=== PATIENT | female | born 1965 | race Asian ===

== ENCOUNTER 2021-01-27 12:20 | Emergency (ER) | payer BC ==
[~2021-01-27] VITALS: Ht 160 cm; Wt 59.0 kg
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
--- NOTE | 2021-01-27 12:24 | NUR ---
DR GILL AT BEDSIDE
[2021-01-27] MEDS ORDERED: KETOROLAC TROMETHAMINE INJ 60 MG/2 ML VIAL IM ONE (12:30)
[2021-01-27] MEDS ORDERED: KETOROLAC TROMETHAMINE INJ 30 MG/ML VIAL ONE (12:31)
[2021-01-27] MEDS ORDERED: AMLODIPINE BESYLATE 5 MG TABLET PO ONE (13:00)
[2021-01-27] MEDS ORDERED: AMLODIPINE BESYLATE 5 MG TABLET ONE (13:05)
--- NOTE | 2021-01-27 13:44 | NUR ---
Patient discharged to home in stable condition. Written and verbal after care instructions given. Patient verbalizes understanding of instruction.
[2021-01-27 13:51] VITALS: BP 187/109
== END 2021-01-27 13:52 | disposition home or self-care (01) ==
LOC: ER 12:24
DX: S39.012A Strain of muscle, fascia and tendon of lower back, initial encounter (principal); I10 Essential (primary) hypertension; E11.9 Type 2 diabetes mellitus without complications; V49.59XA Passenger injured in collision with other motor vehicles in traffic accident, initial encounter; Y93.89 Activity, other specified; Y92.488 Other paved roadways as the place of occurrence of the external cause; Y99.8 Other external cause status
CPT/HCPCS: 72100; 99283; J1885

== ENCOUNTER 2023-06-18 19:58 | Emergency (ER) | payer BC, OTHER ==
[~2023-06-18] VITALS: Ht 160 cm; Wt 59.0 kg
[2023-06-18 20:05] VITALS: TEMP 98
[2023-06-18 20:43] LABS: BASOPHILS % (AUTO) 0.3 % (0.0-2.0); EOSINOPHILS % (AUTO) 0.1 % (0.0-6.0); HEMATOCRIT 42 % (33-45); HEMOGLOBIN 13.6 g/dL (11.5-14.8); LYMPHOCYTES # (AUTO) 1.2 K/uL (0.8-4.8); LYMPHOCYTES % (AUTO) 9.1 % (20.0-44.0); MEAN CORPUSCULAR HEMOGLOBIN 28 PG (26.0-33.0); MEAN CORPUSCULAR HGB CONC 33 g/dl (31.0-36.0); MEAN CORPUSCULAR VOLUME 85 fL (82-100); MONOCYTES # (AUTO) 1.3 K/uL (0.1-1.30); MONOCYTES % (AUTO) 9.5 % (2.0-12.0); PLATELET COUNT (AUTO) 229 K/uL (150-450); RED CELL DISTRIBUTION WIDTH 13.4 % (11.5-15.0); WHITE BLOOD COUNT (AUTO) 13.6 K/uL (4.3-11.0)
[2023-06-18 21:12] LABS: APPEARANCE,URINE CLOUDY (CLEAR); BILIRUBIN,URINE NEGATIVE (NEGATIVE); BLOOD, URINE 3+ Ery/uL (NEGATIVE); COLOR,URINE YELLOW (YELLOW); KETONES,URINE 1+ mg/dL (NEGATIVE); LEUKOCYTE ESTERASE ,URINE 1+ (NEGATIVE); NITRITE, URINE POSITIVE (NEGATIVE); PROTEIN,URINE 3+ mg/dl (NEGATIVE); UGLUCOSE 3+ mg/dL (NEGATIVE); UROBILINOGEN,URINE 0.2 EU/dL (0.2)
[2023-06-18 21:15] LABS: INR 0.98 (0.91-1.10); PARTIAL THROMBOPLASTIN TIME 29.1 SEC (24.3-34.3); PROTHROMBIN TIME 10.3 SECS (9.2-11.1)
[2023-06-18 21:16] LABS: RBC,URINE 51-80 /HPF (0-2)
[2023-06-18 21:17] LABS: ADD URINE CULTURE YES; BACTERIA,URINE 2+ /HPF (None Seen); SQUAMOUS EPITHELIAL CELL,UR 0-2 /HPF (None Seen)
[2023-06-18] MEDS ORDERED: CEFTRIAXONE 1GM BAG (ER ONLY) 1 GM/50 ML PIGGYBACK IV ONE (21:30)
[2023-06-18 21:33] LABS: ALBUMIN 3.6 g/dL (3.4-5.0); BILIRUBIN,DIRECT 0.3 mg/dL (0.0-0.2); BILIRUBIN,TOTAL 1.1 mg/dL (0.2-1.0); CALCIUM, SERUM 9.4 mg/dL (8.5-10.1); CREATININE 0.8 mg/dL (0.6-1.3); POTASSIUM 3.9 mmol/L (3.5-5.1); TOTAL PROTEIN, SERUM 8.1 g/dL (6.4-8.2)
[2023-06-18] MEDS ORDERED: CEFTRIAXONE 1GM BAG (ER ONLY) 50 ML IV ONE (22:02)
[2023-06-18] MEDS ORDERED: CEFD300C3 PO (22:35)
[2023-06-18 22:50] VITALS: BP 123/77; O2SAT 99
[2023-06-20] MEDS ORDERED: CEFD300C3 PO (09:01)
== END 2023-06-18 22:50 | disposition home or self-care (01) ==
LOC: ER 20:03
DX: N12 Tubulo-interstitial nephritis, not specified as acute or chronic (principal); I10 Essential (primary) hypertension; E11.9 Type 2 diabetes mellitus without complications
CPT/HCPCS: 99285; 74176; 96365; 85025; 80048; 87086; 83690; 80076; 81001; 36415; 85730; J0696

== ENCOUNTER 2023-08-26 08:54 | Outpatient (CLI) | payer BC, OTHER ==
[~2023-08-26 08:54] MED LIST: CEFD300C3 PO
[2023-08-26 10:02] LABS: BASOPHILS # (AUTO) 0.1 K/uL (0.0-0.2); BASOPHILS % (AUTO) 0.7 % (0.0-2.0); EOSINOPHILS # (AUTO) 0.1 K/uL (0.0-0.7); EOSINOPHILS % (AUTO) 1.5 % (0.0-6.0); HEMATOCRIT 43 % (33-45); HEMOGLOBIN 14.1 g/dL (11.5-14.8); LYMPHOCYTES # (AUTO) 2.6 K/uL (0.8-4.8); LYMPHOCYTES % (AUTO) 26.6 % (20.0-44.0); MEAN CORPUSCULAR HEMOGLOBIN 28 PG (26.0-33.0); MEAN CORPUSCULAR HGB CONC 32 g/dl (31.0-36.0); MEAN CORPUSCULAR VOLUME 85 fL (82-100); MONOCYTES # (AUTO) 0.9 K/uL (0.1-1.30); NEUTROPHILS # (AUTO) 6.1 K/uL (1.8-8.9); NEUTROPHILS % (AUTO) 62.2 % (43.0-81.0); PLATELET COUNT (AUTO) 253 K/uL (150-450); RED BLOOD CELL COUNT(AUTO) 5.11 MIL/uL (4.0-5.2); RED CELL DISTRIBUTION WIDTH 14.2 % (11.5-15.0); WHITE BLOOD COUNT (AUTO) 9.7 K/uL (4.3-11.0)
[2023-08-26 10:07] LABS: APPEARANCE,URINE CLOUDY (CLEAR); BILIRUBIN,URINE NEGATIVE (NEGATIVE); BLOOD, URINE TRACE-INTA Ery/uL (NEGATIVE); COLOR,URINE YELLOW (YELLOW); KETONES,URINE NEGATIVE (NEGATIVE); LEUKOCYTE ESTERASE ,URINE 1+ (NEGATIVE); NITRITE, URINE POSITIVE (NEGATIVE); PH,URINE 5.5 (5.0-8.0); PROTEIN,URINE TRACE mg/dl (NEGATIVE); UGLUCOSE 3+ mg/dL (NEGATIVE); UROBILINOGEN,URINE 0.2 EU/dL (0.2)
[2023-08-26 10:17] LABS: THYROID STIMULATING HORMONE 0.896 uIU/mL (0.358-3.74); URIC ACID 4.3 mg/dL (2.6-7.2)
[2023-08-26 10:24] LABS: ALBUMIN 3.9 g/dL (3.4-5.0); BILIRUBIN,TOTAL 0.5 mg/dL (0.2-1.0); CREATININE 0.7 mg/dL (0.6-1.3); POTASSIUM 3.8 mmol/L (3.5-5.1)
[2023-08-26 10:34] LABS: ADD URINE CULTURE YES; BACTERIA,URINE Many /HPF (None Seen); SQUAMOUS EPITHELIAL CELL,UR Few /HPF (None Seen); WBC,URINE 21-50 /HPF (0-3)
[2023-08-27 06:06] LABS: FOLIC ACID 13.8 ng/mL (>3.0)
[2023-08-27 08:07] LABS: VIT D, 25-HYDROXY 20.8 ng/mL (30.0-100.0)
== END 2023-08-26 23:59 | disposition home or self-care (01) ==
LOC: LAB 08:54
PROVIDERS: ATTEND Legal Medicine
DX: Z00.00 Encounter for general adult medical examination without abnormal findings (principal); E11.9 Type 2 diabetes mellitus without complications; E03.9 Hypothyroidism, unspecified; D64.9 Anemia, unspecified
CPT/HCPCS: 36415; 80053-TC; 80061-TC; 81001; 82306; 82607-TC; 82728-TC; 83540-TC; 84443-TC; 84550-TC; 85025-TC; 87086-TC

== ENCOUNTER 2023-11-16 18:17 | Emergency (ER) | payer BC, OTHER ==
[~2023-11-16] VITALS: Ht 160 cm; Wt 59.0 kg
[2023-11-16 22:55] VITALS: BP 145/66; TEMP 98; O2SAT 97
== END 2023-11-16 22:55 | disposition home or self-care (01) ==
LOC: ER 18:19
DX: B34.9 Viral infection, unspecified (principal); I10 Essential (primary) hypertension; E11.9 Type 2 diabetes mellitus without complications; Z20.822 Contact with and (suspected) exposure to COVID-19

== ENCOUNTER 2025-04-26 12:41 | Outpatient (CLI) | payer BC, OTHER ==
[2025-04-26 14:16] LABS: BASOPHILS # (AUTO) 0.1 K/uL (0.0-0.2); BASOPHILS % (AUTO) 0.6 % (0.0-2.0); EOSINOPHILS # (AUTO) 0.1 K/uL (0.0-0.7); HEMATOCRIT 41 % (33-45); HEMOGLOBIN 13.8 g/dL (11.5-14.8); LYMPHOCYTES # (AUTO) 3.1 K/uL (0.8-4.8); LYMPHOCYTES % (AUTO) 28.1 % (20.0-44.0); MEAN CORPUSCULAR HEMOGLOBIN 28 PG (26.0-33.0); MEAN CORPUSCULAR HGB CONC 34 g/dl (31.0-36.0); MEAN CORPUSCULAR VOLUME 84 fL (82-100); MONOCYTES # (AUTO) 1.3 K/uL (0.1-1.30); MONOCYTES % (AUTO) 11.8 % (2.0-12.0); NEUTROPHILS # (AUTO) 6.5 K/uL (1.8-8.9); NEUTROPHILS % (AUTO) 58.5 % (43.0-81.0); PLATELET COUNT (AUTO) 375 K/uL (150-450); RED BLOOD CELL COUNT(AUTO) 4.91 MIL/uL (4.0-5.2); WHITE BLOOD COUNT (AUTO) 11.1 K/uL (4.3-11.0)
[2025-04-26 14:27] LABS: APPEARANCE,URINE CLOUDY (CLEAR); BILIRUBIN,URINE NEGATIVE (NEGATIVE); BLOOD, URINE 1+ Ery/uL (NEGATIVE); COLOR,URINE YELLOW (YELLOW); KETONES,URINE TRACE mg/dL (NEGATIVE); LEUKOCYTE ESTERASE ,URINE 2+ (NEGATIVE); NITRITE, URINE POSITIVE (NEGATIVE); PH,URINE 5.5 (5.0-8.0); PROTEIN,URINE TRACE mg/dl (NEGATIVE); UGLUCOSE 2+ mg/dL (NEGATIVE); UROBILINOGEN,URINE 0.2 EU/dL (0.2)
[2025-04-26 14:47] LABS: ADD URINE CULTURE YES; BACTERIA,URINE Many /HPF (None Seen); SQUAMOUS EPITHELIAL CELL,UR Moderate /HPF (None Seen); WBC,URINE 21-50 /HPF (0-3)
[2025-04-26 15:10] LABS: ALBUMIN 3.5 g/dL (3.4-5.0); BILIRUBIN,TOTAL 0.5 mg/dL (0.2-1.0); CALCIUM, SERUM 9.6 mg/dL (8.5-10.1); POTASSIUM 3.6 mmol/L (3.5-5.1)
[2025-04-26 15:11] LABS: FREE T4 (FREE THYROXINE) 1.45 ng/dL (0.76-1.46); THYROID STIMULATING HORMONE 0.6 uIU/mL (0.358-3.74); URIC ACID 6.8 mg/dL (2.6-7.2)
[2025-04-28 08:09] LABS: FOLIC ACID 9.6 ng/mL (>3.0)
== END 2025-04-26 23:59 | disposition home or self-care (01) ==
LOC: LAB 12:41
PROVIDERS: ATTEND Legal Medicine
DX: E11.9 Type 2 diabetes mellitus without complications (principal); E78.00 Pure hypercholesterolemia, unspecified; E55.9 Vitamin D deficiency, unspecified; R53.1 Weakness; I10 Essential (primary) hypertension; E03.9 Hypothyroidism, unspecified; D64.9 Anemia, unspecified; Z00.00 Encounter for general adult medical examination without abnormal findings
CPT/HCPCS: 36415; 80053-TC; 80061-TC; 81001; 82306; 82607-TC; 82728-TC; 83540-TC; 84439-TC; 84443-TC; 84550-TC; 85025-TC; 87086-TC; 87186-TC

== ENCOUNTER 2025-10-01 17:14 | Inpatient (IN) | payer BC, OTHER ==
[~2025-10-01] VITALS: Ht 160 cm; Wt 56.7 kg
--- NOTE | 2025-10-01 17:30 | NUR ---
PT URINATED IN BEDPAN, URINE SAMPLE SENT TO LAB
[2025-10-01] MEDS ORDERED: KETOROLAC TROMETHAMINE INJ 30 MG/ML VIAL ONE (17:37)
[2025-10-01] MEDS: KETOROLAC TROMETHAMINE INJ 30 MG/ML VIAL IV ONE (17:39)
[2025-10-01] MEDS: IV NS 0.9% 1,000 ML BAG IV ONE (17:40)
[2025-10-01 17:43] LABS: PLATELET COUNT (AUTO) 423 K/uL (150-450); RED BLOOD CELL COUNT(AUTO) 4.54 MIL/uL (4.0-5.2); RED CELL DISTRIBUTION WIDTH 13.2 % (11.5-15.0); WHITE BLOOD COUNT (AUTO) 21.9 K/uL (4.3-11.0)
[2025-10-01] MEDS: PIPERACILLIN /TAZOBACTAM 3.375 G in IV D5W 50 ML IV ONE (17:47)
[2025-10-01] MEDS ORDERED: LOSA25TA27 PO (17:52)
[2025-10-01] MEDS ORDERED: PIOG30TA10 PO (17:52)
[2025-10-01] MEDS ORDERED: GLIM4TAB37 PO (17:52)
[2025-10-01] MEDS ORDERED: ROSU5TAB PO (17:52)
[2025-10-01] MEDS ORDERED: AMLO-212 PO (17:52)
[2025-10-01] MEDS ORDERED: METF-442 PO (17:52)
[2025-10-01 17:53] LABS: INR 1.0 (0.91-1.10)
[2025-10-01 17:59] LABS: ASPARTATE AMINOTRANSFERASE 15 U/L (15-37); CALCIUM, SERUM 9.7 mg/dL (8.5-10.1); CREATININE 1.2 mg/dL (0.6-1.3); SODIUM SERUM 130 mmol/L (136-145); TOTAL PROTEIN, SERUM 9.0 g/dL (6.4-8.2); UREA NITROGEN, BLOOD 25 mg/dL (7-18)
[2025-10-01 18:03] LABS: LACTIC ACID 5.7 mmol/L (0.4-2.0)
--- NOTE | 2025-10-01 18:10 | NUR ---
BED [id number]
--- NOTE | 2025-10-01 18:15 | NUR ---
Maday tenorio in [facility] - 10/01/25 at 1816 by PERRY BED REQUESTED FROM HOUSE SUP
--- NOTE | 2025-10-01 18:18 | NUR ---
FLU,COVID AND URINE GIVEN TO LAB
--- NOTE | 2025-10-01 18:27 | NUR ---
REPORT GIVEN TO MEGHAN FOR USHA
[2025-10-01 18:31] LABS: APPEARANCE,URINE CLEAR (CLEAR); BLOOD, URINE Moderate Ery/uL (NEGATIVE); LEUKOCYTE ESTERASE ,URINE Trace (NEGATIVE); NITRITE, URINE NEGATIVE (NEGATIVE); UGLUCOSE >=1000 mg/dL (NEGATIVE)
[2025-10-01 18:35] LABS: ADD URINE CULTURE YES; SQUAMOUS EPITHELIAL CELL,UR Few /HPF (None Seen)
--- NOTE | 2025-10-01 19:01 | NUR ---
REMI TREADWELLE (DAUGHTER):
[2025-10-01] MEDS ORDERED: INSULIN REGULAR, HUMAN 100 UNIT/ML 10 ML VIAL ONE ×2 (19:30→23:27)
[2025-10-01] MEDS: INSULIN REGULAR, HUMAN 100 UNIT/ML 10 ML VIAL SQ ONE (19:32)
--- NOTE | 2025-10-01 19:41 | NUR ---
CALLED LAB TO COME FOR REPEAT LACTIC ACID
--- NOTE | 2025-10-01 19:42 | NUR ---
PT IS REFUSING AMARO CATHETER AT THIS TIME, STATES THAT SHE URINATED A LOT AFTER THE CT SCAN AND DOES NOT FEEL PRESSURE IN HER BLADDER. INFORMED
--- NOTE | 2025-10-01 20:18 | NUR ---
REPORT GIVEN TO LISSET CABALLERO FOR USHA
--- NOTE | 2025-10-01 20:58 | NUR ---
PATIENT TRANSFERRED TO [facility] VIA ACLS PROTOCOL
[2025-10-01] MEDS ORDERED: DOSING PER PHARMACY-CEFEPIME IVPB XX PRN (21:00)
[2025-10-01] MEDS ORDERED: ZOLPIDEM TARTRATE 5 MG TABLET PO PRN (21:00)
[2025-10-01] MEDS ORDERED: DEXTROSE 50%-WATER 50 ML DISP.SYRIN IV PRN (21:00)
[2025-10-01] MEDS ORDERED: MAG HYDROX/AL HYDROX/SIMETH 30 ML UDC PO PRN (21:00)
[2025-10-01 21:10] VITALS: BP 106/64; TEMP 97.9; O2SAT 95
--- NOTE | 2025-10-01 21:30 | NUR ---
SOLUTIONS SALES CONSULTANT ADMISSION NOTE RECEIVED PATIENT FROM ER ACCOMPANIED BY 2 NURSES VIA GURNEY, TRANSFERRED SAFELY IN BED. PATIENT IS A/O X4, ABLE TO VERBALIZE HER NEEDS. FAMILY MEMBERS AT BEDSIDE. WITH DX OF SEPSIS HAVING FEVER AND CHILLS, FLANK PAIN. CURRENTLY ON ROOM AIR, BREATHING EVEN AND UNLABORED, SATING 97%. ON TELE MONITORING SR WITH HR 101 BPM. NO C/O PAIN/DISCOMFORT AT THIS TIME. WITH IV ACCESS ON RIGHT AC #20G RUNNING NS AT 75ML/HR. NO SIGNS OF INFILTRATION OR PHLEBITIS NOTED. IV ABX AND IV HYDRATION GIVEN AT ER, TOLERATED WELL. BODY CHECK DONE, NO SKIN ISSUES NOTED. CLEANED AND CHANGED, KEPT COMFORTABLE. BELONGINGS ACCOUNTED AND LISTED AT PATIENT CHART. ALL FALL/SAFETY MEASURES IN PLACE: BED LOW AND LOCKED POSITION, SIDE RAILS UPX2, CALL LIGHT WITHIN EASY REACH OF PATIENT, BED ALARM ON. PLAN OF CARE ONGOING.
[2025-10-01] MEDS ORDERED: CEFEPIME 1 GM VIAL ONE (21:51)
[2025-10-01] MEDS: CEFEPIME 2 GM in IV D5W 100 ML IV SCH (21:54)
[2025-10-01] MEDS: BLOOD SUGAR DIAGNOSTIC 1 EACH STRIP IN SCH (22:41)
[2025-10-01] MEDS: IV NS 0.9% 1,000 ML IV PRN (22:57)
[2025-10-01] MEDS: ATORVASTATIN 10 MG TABLET PO SCH (23:08)
[2025-10-01] MEDS: INSULIN REGULAR, HUMAN 100 UNIT/ML 3 ML VIAL SQ PRN (23:38)
[2025-10-01] MEDS: ACETAMINOPHEN 325 MG TABLET PO PRN (23:43)
[2025-10-02] VITALS (31 sets, daily range): BP systolic 78–144; BP diastolic 40–106; TEMP 98.2–100.9; O2SAT 96–100
[2025-10-02] MEDS: ONDANSETRON HCL/PF 4 MG/2 ML VIAL IVP PRN (01:38)
--- NOTE | 2025-10-02 01:38 | NUR ---
RN NOTE 0138 - PATIENT NOTED WITH NAUSEA AND VOMITING, ZOFRAN IVP GIVEN, TOLERATED WELL.
[2025-10-02] MEDS: MORPHINE SULFATE INJ 2 MG/ML DISP.SYRIN IV PRN (01:54)
--- NOTE | 2025-10-02 01:54 | NUR ---
RN NOTE PRN MORPHINE 2MG IVP GIVEN FOR 9/10 PAIN SCALE OF PATIENT BACK. BP 154/78, HR 140 BPM. WILL CONTINUE TO MONITOR THE PATIENT.
--- NOTE | 2025-10-02 02:25 | NUR ---
RN NOTE NOTED WITH 1/10 FLANK PAIN AT THIS TIME. WILL CONTINUE TO MONITOR THE PATIENT.
--- NOTE | 2025-10-02 06:48 | NUR ---
SALVAGE SUPERVISOR CLOSING NOTE PATIENT IN BED ASLEEP EASILY AWAKENS BY VERBAL/TACTILE STIMULI. ON 2L OXYGEN VIA NC, BREATHING EVEN AND UNLABORED, SATING 98%. ON TELE MONITORING SR WITH HR 118 BPM. INTACT AND PATENT IV ACCESS ON RIGHT AC #20G RUNNING NS AT 75ML/HR. NO SIGNS OF INFILTRATION OR PHLEBITIS NOTED. ON PRN PAIN MANAGEMENT FOR FLANK PAIN, TOLERATED WELL. CLEANED AND REPOSITIONED. ASSISTED PT ON BEDSIDE COMMODE USE, NO BM. ALL FALL/SAFETY MEASURES MAINTAINED: BED LOW AND LOCKED POSITION, SIDE RAILS UPX2, CALL LIGHT WITHIN EASY REACH OF PATIENT, BED ALARM ON. WILL ENDORSE TO INCOMING SHIFT RN.
--- NOTE | 2025-10-02 06:54 | NUR ---
RN NOTE BLOOD CULTURE RESULTS RELAYED TO THANG MONTGOMERY, NO NEW ORDER. PATIENT CURRENTLY ON IV ANTIBIOTICS.
--- NOTE | 2025-10-02 07:25 | NUR ---
RN OPENING NOTE RECEIVED PATIENT AWAKE IN BED, A/O X4, ON O2 @ 2L/MINUTE VIA NASAL CANNULA, TOLERATING WELL, NO SIGNS OF BEING IN ANY DISTRESS. SHE IS ON TELE - SR. SKIN IS WARM AND INTACT. SHE HAS IV ACCESS ON THE RIGHT AC #20, NS @ 75 CC/HR INFUSING WELL. BED IN LOW AND LOCKED POSITION, SIDE RAILS UP X3, CALL LIGHT WITHIN REACH, AND OTHER SAFETY MEASURES WERE IMPLEMENTED.
[2025-10-02] MEDS: PANTOPRAZOLE 40 MG TABLET.DR PO SCH (07:39)
[2025-10-02 07:41] LABS: PLATELET COUNT (AUTO) 266 K/uL (150-450); RED BLOOD CELL COUNT(AUTO) 3.96 MIL/uL (4.0-5.2); RED CELL DISTRIBUTION WIDTH 13.2 % (11.5-15.0); WHITE BLOOD COUNT (AUTO) 15.8 K/uL (4.3-11.0)
[2025-10-02 07:51] LABS: ASPARTATE AMINOTRANSFERASE 38.0 U/L (15-37); CREATININE 1.1 mg/dL (0.6-1.3); PHOSPHORUS 1.8 mg/dL (2.5-4.9); SODIUM SERUM 133.0 mmol/L (136-145); TOTAL PROTEIN, SERUM 6.8 g/dL (6.4-8.2); UREA NITROGEN, BLOOD 20.0 mg/dL (7-18)
[2025-10-02] MEDS: LOSARTAN POTASSIUM 25 MG TABLET PO SCH (08:03)
[2025-10-02] MEDS: AMLODIPINE BESYLATE 5 MG TABLET PO SCH (08:03)
[2025-10-02 08:04] LABS: CALCIUM, SERUM 8.2 mg/dL (8.5-10.1)
--- NOTE | 2025-10-02 08:04 | NUR ---
RN NOTE - BP MEDS PATIENT REFUSED TO TAKE HER BLOOD PRESSURE MEDS SHE WAS AWARE THAT HER BLOOD PRESSURE IS 104/63. SHE SAID SHE USUALLY DOES NOT TAKE HER BP MEDS WHEN HER BLOOD PRESSURE IS LOW AT HOME.
[2025-10-02 08:09] LABS: LDL 98.0 mg/dL (0-99)
[2025-10-02] MEDS: METFORMIN 500 MG TABLET PO SCH (08:10)
[2025-10-02] MEDS: GLIMEPIRIDE 4 MG TABLET PO SCH (08:10)
[2025-10-02] MEDS: PIOGLITAZONE HCL 15 MG TABLET PO SCH (08:10)
[2025-10-02] MEDS: POTASSIUM CHLORIDE 20 MEQ TAB.PRT.SR PO SCH (09:30)
[2025-10-02] MEDS: MAGNESIUM OXIDE 400 MG TABLET PO ONE (09:30)
[2025-10-02 09:45] LABS: LACTIC ACID 1.6 mmol/L (0.4-2.0)
--- NOTE | 2025-10-02 11:35 | NUR ---
RN NOTE - BLADDER SCAN NOT RETAINING URINE - 0 ML ON BLADDER SCANNER. INFORMED STONE HAND TERRY
[2025-10-02] MEDS: IV LR 500 ML IV ONE (11:50)
--- NOTE | 2025-10-02 11:50 | NUR ---
MIDLINE RN NOTES LEFT ARM ULTRASOUND PERFORMED TO IDENTIFY ADEQUATE VEIN FOR MIDLINE INSERTION. LEFT ARM PREPPED USING STERILE TECHNIQUE. POWERGLIDE 18G/10CM WAS INSERTED AT LEFT BASILIC VEIN WITH EASE, GOOD NON PULSATILE BLOOD RETURN, SECURED WITH INTERLOCK DEVICE AND PLACED BIOPATCH. DRESSED USING NORMAL STERILE FASHION. EACH PORT WAS ASPIRATED WITH VENOUS BLOOD AND EACH PORT WAS FLUSHED WITH 10ML OF NORMAL SALINE. PROCEDURE WELL TOLERATED BY THE PT. SUPERVISED BY DR.EM RAINEY PhD. ENDORSED TO JOSE ANTONIO DARLING.
--- NOTE | 2025-10-02 12:09 | NUR ---
RN NOTE - TRANSFER TRANSFERRED PATIENT TO ICU DUE TO HYPOTENSION - BP OF 78/50. IV BOLUS GIVEN - 98/50 WAS THE LAST BLOOD PRESSURE TAKEN. GLUCOSE IS 254 - ENDORSED TO LISA DARLING OF ICU. ALL DUE MEDS WERE GIVEN. ALL NEEDS WERE ATTENDED TO. TRANSPORTED VIA ACLS PROTOCOL
--- NOTE | 2025-10-02 12:10 | NUR ---
PARTS COUNTERMANDIRECTOR OF CLINICAL EDUCATION NOTE PT TRANSFERRED FROM [facility] DUE TO HYPOTENSION - BP OF 78/50. PT AxOx4 ALERT AND ABLE TO MAKE NEEDS KNOWN. PT ON NC 2L STATING AT 98%. IV ACCESS NOTED ON BRIAN ML RUNNING NS BOLUS. NEW IV SITE PLACED AT BEDSIDE, RFA #20G SL. NO S/SX OF DISTRESS OR PAIN NOTED AT THIS TIME. PT PLACED ON SMART GRID ENGINEER, SR NOTED, HR 95. BP 124/73. BS REPORTED BY NURSE WAS 254, 6 UNITS GIVEN PER SLIDING SCALE. SAFETY MEASURES IN PLACE, BED LOW AND LOCKED, RIALS UP X 2, CALL LIGHT WITHIN REACH. BED SIDE SITTER WITH THE PT. PT STARTED ON NS AT 90/HR ORDERED.
[2025-10-02] MEDS: IV NS 0.9% 1,000 ML IV PRN (12:14)
[2025-10-02] MEDS: IV NS 0.9% 500 ML IV ONE (14:46)
--- NOTE | 2025-10-02 15:14 | NUR ---
500 ML NS BOLUS DONE, IVF BACK TO 90 ML/HR. VITAL SIGNS FOLLOW: HR 119, RR 21, SPO2 99 AT 2LPM, BP 144/97
[2025-10-02] MEDS: ENOXAPARIN SODIUM 40 MG/0.4 ML DISP.SYRIN SQ SCH (16:22)
[2025-10-02] MEDS: K PHOS NEUTRAL 250 MG TABLET PO ONE (16:22)
--- NOTE | 2025-10-02 16:31 | NUR ---
WAXED BAG MACHINE OPERATOR NOTE: PER PATIENT, SHE WOULD LIKE HER DAUGHTER REMI TO BE NOTIFIED BEFORE HER FOR UPDATES OR IN CASE OF EMERGENCIES. DAUGHTER AT BEDSIDE HER NUMBER IS .
[2025-10-02] MEDS: PHENYLEPHRINE 50 MG in IV NS 0.9% 245 ML IV PRN (18:00)
--- NOTE | 2025-10-02 18:12 | NUR ---
AXILLARY TEMP STILL AT 100.4, COOLING MEASURES DONE.
[2025-10-02] MEDS: TRAMADOL HCL 50 MG TABLET PO PRN (18:55)
--- NOTE | 2025-10-02 18:58 | NUR ---
PRN TRAMADOL 50MG GIVEN FOR MODERATE LOW BACK PAIN. WILL CONTINUE TO MONITOR.
--- NOTE | 2025-10-02 19:30 | NUR ---
Pt received A/Ox4 with daughters at bedside. On O2 via NC at 2lpm, O2sat at 99%. Bedside monitor in place showing SR at 80's. IV access on RFA #20g and BRIAN ML infusing NS at 90 ml/hr. Safety measures in place. HOB elevated. Plan of care ongoing.
--- NOTE | 2025-10-02 19:33 | NUR ---
SOFTWARE INSTALLATION ENGINEER CLOSING NOTE PATIENT RESTING IN BED, ABLE TO MAKE NEEDS KNOWN. CURRENTLY ON NASAL CANULA AT 2LPM FOR COMFORT. ON SINUS RHYTHM TO SINUS TACHYCARDIA, HEART RATE FROM 90-120. LOW GRADE FEVER AT 100.4, COOLING MEASURES RENDERED. LOW BACK PAIN MANAGED PER MD ORDER. RIGHT FOREARM PIV AND LEFT UPPER ARM MIDLINE INTACT, PATENT AND FLUSHING RUNNING NS AT 90 ML/HR. ABLE TO USE BSC WITH MINIMAL ASSIST. CLEAR YELLOW URINE OUTPUT NOTED. NO BM. INDEPENDENT WITH BED MOBILITY. ALL DUE MEDS GIVEN AND NEEDS ATTENDED. STRICT ASPIRATION PRECAUTION OBSERVED. SAFETY MEASURES MAINTAINED. ENDORSED TO ASH DARLING FOR USHA.
[2025-10-02] MEDS: IV NS 0.9% 500 ML BAG IV ONE (20:23)
--- NOTE | 2025-10-02 20:25 | NUR ---
Hospitalist informed sbp at 80's. Order for bolus received and given and started PRN Hiro as needed and as ordered.
--- NOTE | 2025-10-02 21:30 | NUR ---
Bladder scan performed. Order for FC obtained for strict I&O. FC inserted as ordered. 240ml output. Pt tolerated well.
[2025-10-02] MEDS ORDERED: Magnesium 1GM/D5W 100ML PREMIX 100 ML IV SCH (22:00)
[2025-10-02] MEDS: TAMSULOSIN 0.4 MG CAP.SR.24H PO SCH (22:04)
[2025-10-02] MEDS ORDERED: Magnesium 1 GM/2 ML VIAL IV ONE (22:30)
[2025-10-02] MEDS: Magnesium 1GM/D5W 100ML PREMIX 100 ML IV ONE (23:17)
[2025-10-03] VITALS (41 sets, daily range): BP systolic 86–190; BP diastolic 55–172; TEMP 97–99.1; O2SAT 91–100
[2025-10-03] MEDS: ONDANSETRON HCL/PF 4 MG/2 ML VIAL IV STA (04:04)
[2025-10-03 04:17] LABS: PLATELET COUNT (AUTO) 228 K/uL (150-450); RED BLOOD CELL COUNT(AUTO) 3.76 MIL/uL (4.0-5.2); RED CELL DISTRIBUTION WIDTH 13.5 % (11.5-15.0); WHITE BLOOD COUNT (AUTO) 19.0 K/uL (4.3-11.0)
[2025-10-03 04:38] LABS: ERYTHROCYTE SEDIMENTATION RATE 56 MM/HR (0-30)
[2025-10-03 04:42] LABS: ASPARTATE AMINOTRANSFERASE 41.0 U/L (15-37); CALCIUM, SERUM 8.3 mg/dL (8.5-10.1); CREATININE 1.2 mg/dL (0.6-1.3); PHOSPHORUS 3.2 mg/dL (2.5-4.9); SODIUM SERUM 137.0 mmol/L (136-145); TOTAL PROTEIN, SERUM 7.0 g/dL (6.4-8.2); UREA NITROGEN, BLOOD 22.0 mg/dL (7-18)
[2025-10-03 04:45] LABS: CREATINE KINASE, TOTAL 56.0 U/L (26-192)
--- NOTE | 2025-10-03 07:30 | NUR ---
ICU/RN PT IS RESTING ON 5L N/C SAT O2-98%.V/S STABLE.OFF PRESSORS. NO PAIN REPORTED AT THIS TIME.NO C/O OF NAUSEA. AWAKE,ALERT,ORIENTED-4.IV INFUSING ORDERED.F/C IN PLACE DRAINING WITH ORANGE URINE.SKIN INTACT. LABS REVIEW.MD AWARE.CONTINUE MONITORING.
--- NOTE | 2025-10-03 09:00 | NUR ---
ICU/RN AM MEDS GIVEN ORDERED:PROTONIX 1 TAB,METFORMIN-2 TAB,ACTOS-2 TAB,AMARYL 1 TAB .- WAS REMOVED 2 TIMES. ONLY 1 DOSE WAS GIVEN PO. FIRST DOSE WAS ACCIDENTLY THROW IN THE GARBAGE AND REMOVED SECOND TIME. PHARMACY NOTIFIED.
--- NOTE | 2025-10-03 09:10 | NUR ---
ICU/RN PT C/O OF LOWER BACK PAIN -05/23.TRAMADOL 1 TAB PO GIVEN ORDERED.CONTINUE MONITORING.
[2025-10-03] MEDS: MEROPENEM 1 G in IV NS 0.9% 100 ML IV SCH (12:06)
[2025-10-03 13:17] LABS: APPEARANCE,URINE CLEAR (CLEAR); BLOOD, URINE TRACE-INTA Ery/uL (NEGATIVE); EOSINOPHIL,URINE None Seen; LEUKOCYTE ESTERASE ,URINE NEGATIVE (NEGATIVE); NITRITE, URINE POSITIVE (NEGATIVE); UGLUCOSE NEGATIVE (NEGATIVE)
[2025-10-03 13:18] LABS: ADD URINE CULTURE YES; SQUAMOUS EPITHELIAL CELL,UR Rare /HPF (None Seen)
[2025-10-03 13:32] LABS: CREATININE, URINE 23.7 MG/DL (30.0-125.0); URINE SODIUM, RANDOM 49.0 mmol/l (40-220); URINE TOTAL PROTEIN 37.5 mg/dL (0-11.9)
--- NOTE | 2025-10-03 15:22 | NUR ---
ICU/RN PT C/O OF PAIN -06/23.TRAMADOL PO GIVEN.PT HAS NAUSEA.ZOFRAN 4 MG IV GIVEN ORDERED.REPOSITION FOR COMFORT.FAMILY AT BEDSIDE.
[2025-10-03] MEDS ORDERED: HYDROCODONE/APAP 10/325MG TABLET PO PRN (18:00)
--- NOTE | 2025-10-03 18:50 | NUR ---
ICU/RN BS-62.ORANGE JUICE 1 CUP GIVEN MD NOTIFIED. ALL DIABETIC MEDS AT 1700 ON HOLD .
--- NOTE | 2025-10-03 19:31 | NUR ---
Assumed care- report received from LISSET ALTAMIRANO. Patient awake and alert. v/s stable.Family at bedside. Denies needs at this time.
[2025-10-04] VITALS (32 sets, daily range): BP systolic 95–172; BP diastolic 57–87; TEMP 97.9–99.5; O2SAT 94–100
[2025-10-04 04:55] LABS: CREATINE KINASE, TOTAL 20.0 U/L (26-192)
[2025-10-04 04:58] LABS: ASPARTATE AMINOTRANSFERASE 22.0 U/L (15-37); CALCIUM, SERUM 7.9 mg/dL (8.5-10.1); CREATININE 0.8 mg/dL (0.6-1.3); PHOSPHORUS 1.9 mg/dL (2.5-4.9); SODIUM SERUM 138.0 mmol/L (136-145); TOTAL PROTEIN, SERUM 5.7 g/dL (6.4-8.2); UREA NITROGEN, BLOOD 14.0 mg/dL (7-18)
--- NOTE | 2025-10-04 05:30 | NUR ---
Critical lab result received. Procalcitonin level is 25.12 Trending down. Haroon Mcarthur NP notified and made aware: no new order
[2025-10-04 05:58] LABS: PLATELET COUNT (AUTO) 182 K/uL (150-450); RED BLOOD CELL COUNT(AUTO) 3.11 MIL/uL (4.0-5.2); RED CELL DISTRIBUTION WIDTH 13.4 % (11.5-15.0); WHITE BLOOD COUNT (AUTO) 11.1 K/uL (4.3-11.0)
--- NOTE | 2025-10-04 07:45 | NUR ---
ICU/RN PT IS RESTING .V/S STABLE,AFEBRILE.NO PAIN REPORTED AT THIS TIME. BS-49.PT IS AWAKE,ALERT. ORANGE JUICE AND SWEET COFFEE GIVEN .MD NOTIFIED.IV INFUSING ORDERED.F/C DRAINING WITH YELLOW URINE..LABS REVIEW.MD AWARE. AM CARE PROVIDED.REPOSITION FOR COMFORT.
--- NOTE | 2025-10-04 09:00 | NUR ---
ICU/RN PT HAS DIABETIC MEDICATIONS AND BP MEDS IN AM .ALL OF THEM NOT GIVEN BS WAS 49,NOW-98.BP ON THE LOW SIDE. MD NOTIFIED. CONTINUE MONITORING.
[2025-10-04] MEDS: MEROPENEM 1 G in IV NS 0.9% 100 ML IV SCH (11:13)
[2025-10-04] MEDS: K PHOS NEUTRAL 250 MG TABLET PO ONE (11:14)
[2025-10-04] MEDS: IV D5/0.45 NACL 1,000 ML IV PRN (12:19)
--- NOTE | 2025-10-04 17:00 | NUR ---
ICU/RN PT C/O OF LOWER BACK PAIN 7-06/23.ULTRAM 1 TAB PO GIVEN ORDERED.
--- NOTE | 2025-10-04 17:34 | NUR ---
ICU/RN BS-184. PT REFUSED TO TAKE INSULIN COVERAGE,HAD LOW BLOOD SUGAR THIS MORNING.
--- NOTE | 2025-10-04 18:30 | NUR ---
ICU/RN PT STILL C/O OF PAIN -05/23. MORPHINE SULFATE 2MG IV GIVEN ORDERED. O2 INCREASED TO 5L N/C SAT O2-95%.
--- NOTE | 2025-10-04 18:40 | NUR ---
ICU/RN PT C/O OF NAUSEA AND VOMITING. ZOFRAN IV GIVEN ORDERED. PT HAS SOB ,HR-166 BPM. BP INCREASED. CHARGE NURSE NOTIFIED.MD NOTIFIED.NEW ORDERS RECEIVED.
--- NOTE | 2025-10-04 18:50 | NUR ---
ICU/RN SOLUMEDROL IV GIVEN ORDERED.RT AT BEDSIDE .BREATHING TREATMENT GIVEN ORDERED ,ABG DONE. MD NOTIFIED. CT CHEST ORDERED R/O OF PE. FAMILY AT BED SIDE.
[2025-10-04] MEDS: LEVALBUTEROL HCL NEB 1.25 MG/0.5 ML VIAL.NEB NEB SCH (18:51)
[2025-10-04 19:06] LABS: ABG BASE EXCESS -1.4 mmol/L (-2.0-3.0); ABG OXYGEN SATURATION 92.4 % (94.0-98.0); ABG PCO2 26.9 mmHg (32.0-45.0); ABG PH 7.504 (7.350-7.450); ABG PO2 56.8 mmHg (83.0-108.0); ABG TOTAL HEMOGLOBIN 10.9 G/dL (12.0-16.0); SITE, ABG RIGHT RADIAL
--- NOTE | 2025-10-04 19:06 | NUR ---
STAT ABG DONE LYE TREATER NOTIFIED WITH THE RESULT.
[2025-10-04 19:07] LABS: FLOW, BLOOD GAS 3.00 L/min (0.00-30.00)
--- NOTE | 2025-10-04 19:21 | NUR ---
Assumed care. Report received from LISSET ALTAMIRANO. Patient awake and alert. Sinus tach at 135. Denies pain at this time. not in distress.
[2025-10-04] MEDS: LORAZEPAM INJ 2 MG/ML VIAL IV ONE (19:34)
[2025-10-04] MEDS ORDERED: IV NS 0.9% 250 ML IV ONE (19:50)
[2025-10-04] MEDS ORDERED: IOHEXOL-350 100 ML VIAL IV ONE (19:50)
--- NOTE | 2025-10-04 20:15 | NUR ---
Back to room from CT. Off IVF for now per Camila Duff NP.
--- NOTE | 2025-10-04 20:40 | NUR ---
PT PLACED ON HFNC 30L, 60% RN AWARE.
[2025-10-04] MEDS: METOCLOPRAMIDE HCL 10 MG/2 ML VIAL IV SCH (20:53)
[2025-10-04] MEDS: PANTOPRAZOLE 40 MG VIAL IV SCH (20:53)
[2025-10-05] VITALS (39 sets, daily range): BP systolic 94–158; BP diastolic 54–89; TEMP 97.7–98.3; O2SAT 91–100
[2025-10-05 00:36] LABS: ABG BASE EXCESS -1.5 mmol/L (-2.0-3.0); ABG OXYGEN SATURATION 98.8 % (94.0-98.0); ABG PCO2 34.0 mmHg (32.0-45.0); ABG PH 7.434 (7.350-7.450); ABG PO2 197.1 mmHg (83.0-108.0); ABG TOTAL HEMOGLOBIN 10.2 G/dL (12.0-16.0); FLOW, BLOOD GAS 30.00 L/min (0.00-30.00); FRACTIONATED INSPIRED OXYGEN 60.0 %; SITE, ABG RIGHT RADIAL
--- NOTE | 2025-10-05 00:37 | NUR ---
ABG DONE RN NOTIFIED WITH THE RESULT. FIO2 TITRATED 40%.
[2025-10-05] MEDS: FUROSEMIDE 20 MG/2 ML VIAL IV SCH (00:58)
--- NOTE | 2025-10-05 00:58 | NUR ---
BP 148/82 map 102 Lasix 20 mg IV x 1 if her bp goes above 120 given as ordered by Camila Duff NP.
[2025-10-05 04:44] LABS: PLATELET COUNT (AUTO) 211 K/uL (150-450); RED BLOOD CELL COUNT(AUTO) 3.49 MIL/uL (4.0-5.2); RED CELL DISTRIBUTION WIDTH 13.1 % (11.5-15.0); WHITE BLOOD COUNT (AUTO) 8.6 K/uL (4.3-11.0)
[2025-10-05 04:52] LABS: CALCIUM, SERUM 8.9 mg/dL (8.5-10.1); CREATININE 0.9 mg/dL (0.6-1.3); SODIUM SERUM 136.0 mmol/L (136-145); UREA NITROGEN, BLOOD 12.0 mg/dL (7-18)
[2025-10-05 08:12] LABS: PTH, INTACT 27 pg/mL (15-65)
[2025-10-05] MEDS: ENOXAPARIN SODIUM 60 MG/0.6 ML DISP.SYRIN SQ SCH (08:36)
[2025-10-05] MEDS: CALCIUM CARB 600MG /VIT D 1 EACH TABLET PO SCH (08:36)
[2025-10-05] MEDS: BUMETANIDE INJ 0.25 MG/ML VIAL IV ONE (12:04)
[2025-10-05] MEDS: ENOXAPARIN SODIUM 40 MG/0.4 ML DISP.SYRIN SQ SCH (14:10)
--- NOTE | 2025-10-05 19:15 | NUR ---
ICU/[employer] BPM DEVELOPER RECEIVED REPORT FROM DAY RN PT IS A/O X4, IS AT BEDSIDE. PT IS CURRENTLY ON RA WITH SATURATION 98% PT HAS NO SKIN ISSUES. AMARO CATH DRAINING, YELLOW. WILL MONITOR THIS PT, CALL LIGHT WITHIN REACH.
--- NOTE | 2025-10-05 20:41 | NUR ---
ICUY/PURCHASE ORDER CHECKER PT COMPLAINED ABOUT PAIN RATED 10/10 TO BACK. PRN PO ULTRAM WAS GIVEN FOR THIS. CALL LIGHT IS WITHIN REACH. WILL MONITOR
--- NOTE | 2025-10-05 21:26 | NUR ---
ICU/CLIENT SUPPORT REPRESENTATIVE ID JEANNETTE YIP WAS HERE AND CHANGED OUT MERREM IVP FOR ROCEPHIN IVP. ORDERS NOTED , WILL CARRY OUT NEW ORDERS.
[2025-10-05] MEDS: CEFTRIAXONE 1 G in IV D5W 50 ML IV SCH (21:37)
[2025-10-05] MEDS: CEFTRIAXONE 1GM BAG (ER ONLY) 50 ML IV ONE (21:38)
[2025-10-05] MEDS: POLYETHYLENE GLYCOL 3350 17 GM POWD.PACK PO SCH (21:44)
--- NOTE | 2025-10-05 22:00 | NUR ---
ICU/SHELLFISH MANAGER PT APPEARS TO BE RESTING COMFORTABLE, 1 HOUR POST ULTRUM PO GIVEN. PT DENIES PAIN CURRENTLY. WILL MONITOR CALL LIGHT IS WITHIN REACH.
--- NOTE | 2025-10-05 22:34 | NUR ---
ICU/CASING CLEANER REPORT GIVEN TO NIGHT NURSE FROM [facility]. PT TO GO TO ROOM 313-BED 2 Addendum: 10/05/25 at 2302 by JUAN ANTONIO ROY LVN WRONG PT
[2025-10-06] VITALS (26 sets, daily range): BP systolic 90–146; BP diastolic 53–85; TEMP 97.6–98.5; O2SAT 91–99
--- NOTE | 2025-10-06 02:22 | NUR ---
ICU/AIRCRAFT STRUCTURAL REPAIR MECHANIC PT WAS GIVEN PRN PO TYLENOL 650MG FOR PAIN RATED 4/10 TO LOWER BACK. PT'S CALL LIGHT IS WITHIN REACH. NO ACUTE DISTRESS SEEN AT THIS TIME. WILL CONTINUE TO MONITOR.
--- NOTE | 2025-10-06 04:00 | NUR ---
ICU/FRONT ATTENDANT PT APPEARS TO BE COMFORTABLE. DENIES PAIN AT THIS TIME. CALL LIGHT IS WITHIN REACH.
[2025-10-06 05:10] LABS: ERYTHROCYTE SEDIMENTATION RATE 94 MM/HR (0-30)
[2025-10-06 05:14] LABS: PLATELET COUNT (AUTO) 262 K/uL (150-450); RED BLOOD CELL COUNT(AUTO) 3.36 MIL/uL (4.0-5.2); RED CELL DISTRIBUTION WIDTH 13.2 % (11.5-15.0); WHITE BLOOD COUNT (AUTO) 16.1 K/uL (4.3-11.0)
[2025-10-06 05:24] LABS: ASPARTATE AMINOTRANSFERASE 15.0 U/L (15-37); CALCIUM, SERUM 9.2 mg/dL (8.5-10.1); CREATININE 0.9 mg/dL (0.6-1.3); SODIUM SERUM 138.0 mmol/L (136-145); TOTAL PROTEIN, SERUM 6.3 g/dL (6.4-8.2); UREA NITROGEN, BLOOD 27.0 mg/dL (7-18)
--- NOTE | 2025-10-06 06:04 | NUR ---
[place] DESIR NOTIFIED OF PROCALCITONIN OF 9.79 THIS AM. ON 10/04/25, RESULT OF 25.12. NO ORDERS RECEIVED AT THIS TIME.
--- NOTE | 2025-10-06 07:50 | NUR ---
RT PATIENT REFUSED HHN TX. NO SOB, ON ROOM AIR, CLEAR BREATHE SOUNDS
[2025-10-06] MEDS ORDERED: FUROSEMIDE 40 MG/4 ML VIAL IV SCH (10:30)
[2025-10-06] MEDS: FUROSEMIDE 20 MG/2 ML VIAL IV ONE (11:10)
[2025-10-06] MEDS: POTASSIUM CHLORIDE 20 MEQ TAB.PRT.SR PO ONE (11:10)
[2025-10-06] MEDS: ASPIRIN 81 MG TAB.CHEW PO SCH (11:10)
[2025-10-06 11:28] LABS: IRON, SERUM 60.0 ug/dl (50-175)
[2025-10-06] MEDS: FUROSEMIDE 40 MG/4 ML VIAL IV SCH (14:29)
[2025-10-06] MEDS: SOD FERRIC GLUC 125 MG in IV NS 0.9% 100 ML IV SCH (14:45)
--- NOTE | 2025-10-06 17:01 | NUR ---
BLOOD SUGAR LEVEL ON ACCU-CHECK, BEFORE DINNER, 418. PROTOCOL INITIATED, INSULIN 10U ADMINISTERED, CLEMENTINE STEWART NOTIFIED.
[2025-10-06] MEDS: INSULIN REGULAR, HUMAN 100 UNIT/ML 10 ML VIAL SQ ONE (17:34)
--- NOTE | 2025-10-06 17:37 | NUR ---
PER CLEMENTINE STEWART MAP CLERK, ORDER, 4U OF INSULIN ADMINISTERED ONCE.
--- NOTE | 2025-10-06 19:15 | NUR ---
ICU/SPRAY MIXER RECEIVED REPORT FROM DAY RN PT IS A/O X4, IS AT BEDSIDE. PT IS CURRENTLY ON RA WITH SATURATION 96% PT HAS NO SKIN ISSUES. AMARO CATH DRAINING, PALE YELLOW. WILL MONITOR THIS PT, CALL LIGHT WITHIN REACH. NO ACUTE DISTRESS SEEN AT THIS TIME
[2025-10-06] MEDS: MAGNESIUM HYDROXIDE 30 ML UDC PO PRN (20:14)
[2025-10-06] MEDS: SENNOSIDES 8.6 MG TABLET PO PRN (20:14)
--- NOTE | 2025-10-06 21:00 | NUR ---
ICU/SUPERVISOR RUBBER COVERING PT WAS GIVEN PRN PO [place] 1 TAB AND MOM. PT HASN'T HAD A BM. WILL MONITOR
[2025-10-06] MEDS: ATORVASTATIN 10 MG TABLET PO SCH (21:53)
[2025-10-06] MEDS: INSULIN GLARGINE, 100 UNIT/ML CARTRIDGE SQ SCH (21:54)
--- NOTE | 2025-10-06 22:30 | NUR ---
ICU/ENCEPHALOGRAPHER PT'S PM BLOOD SUGAR WAS 291. THIS WAS COVERED WITH LANTUS 8 UNITS. ALONG WITH REGULAR 6UNITS. WILL MONITOR THIS PT'S SUGARS ORDERED.
[2025-10-07] VITALS (20 sets, daily range): BP systolic 93–162; BP diastolic 44–82; TEMP 97.5–98; O2SAT 94–100
--- NOTE | 2025-10-07 00:10 | NUR ---
ICU/PRINTING SIGN MACHINE OPERATOR PT WAS PLACED ON 2 LITERS VIA N/C FOR SATURATION 88% WHILE ON ROOM AIR. WILL MONITOR
--- NOTE | 2025-10-07 02:45 | NUR ---
ICU/APPEALS COURT ASSOCIATE JUSTICE PT APPEARS TO BE ASLEEP. NO DISTRESS SEEN AT THIS TIME. DENIES PAIN AT THIS TIME. CALL LIGHT IS WITHIN REACH. WILL CONTINUE TO MONITOR THIS PT
--- NOTE | 2025-10-07 06:00 | NUR ---
ICU/TABLE ASSEMBLER AM LABS WERE DRAWN. PT HAS BEEN ASLEEP THROUGH THE NIGHT NO DISTRESS SEEN AT THIS TIME.
[2025-10-07 06:58] LABS: ASPARTATE AMINOTRANSFERASE 15.0 U/L (15-37); CALCIUM, SERUM 9.1 mg/dL (8.5-10.1); CREATININE 1.0 mg/dL (0.6-1.3); PHOSPHORUS 2.6 mg/dL (2.5-4.9); SODIUM SERUM 140.0 mmol/L (136-145); TOTAL PROTEIN, SERUM 6.6 g/dL (6.4-8.2); UREA NITROGEN, BLOOD 31.0 mg/dL (7-18)
--- NOTE | 2025-10-07 07:11 | NUR ---
ICU/SHANK INSPECTOR DR GUZMAN CAME IN ORDERED TO HAVE AMARO CATH D/C'D THEN TO HAVE WALK IN THE HALLWAY.
[2025-10-07 07:32] LABS: PLATELET COUNT (AUTO) 329 K/uL (150-450); RED BLOOD CELL COUNT(AUTO) 3.55 MIL/uL (4.0-5.2); RED CELL DISTRIBUTION WIDTH 13.3 % (11.5-15.0); WHITE BLOOD COUNT (AUTO) 16.2 K/uL (4.3-11.0)
--- NOTE | 2025-10-07 07:45 | NUR ---
RN OPENING NOTES; RECEIVED PATIENT AWAKE IN BED, A/O X4, ON O2 VIA NC, SAT= 98%, TOLERATING WELL. TELE READS SR, HR= 80s. PT REPORTS GENERAL PAIN 3/10 WILL MEDICATE PER ORDER. SKIN IS WARM AND INTACT. SHE HAS IV ACCESS ON THE BRIAN ML, FLUSHING WELL, SL. FC IN PLACE WITH CLEAR YELLOW URINE, WILL DC PER MD ORDER, NC BED IN LOW AND LOCKED POSITION, SIDE RAILS UP X3, CALL LIGHT WITHIN REACH, OTHER SAFETY MEASURES WERE IMPLEMENTED, CARE ON GOING.
--- NOTE | 2025-10-07 08:00 | NUR ---
RN NOTES: FOX'Miranda AMARO PER , PT ASKED FOR APAP FOR MILD PAIN, GIVEN, WILL REASSESS PER PROTOCOL
[2025-10-07] MEDS: POTASSIUM CHLORIDE 20 MEQ TAB.PRT.SR PO SCH (08:39)
[2025-10-07] MEDS: PANTOPRAZOLE 40 MG TABLET.DR PO SCH (08:39)
--- NOTE | 2025-10-07 11:00 | NUR ---
RN NOTES: BLADDER SCANNER DONE= RESIDUAL < 15ML
--- NOTE | 2025-10-07 11:40 | NUR ---
RN NOTES: TRANSFERRED TO [facility] VIA ACLS PROTOCOL, PT IS STABLE ON RA, ALL VITALS WNL, BEDSIDE REPORT GIVEN TO LISSET ANDRADE
--- NOTE | 2025-10-07 11:44 | NUR ---
PT TRANSFERRED TO [facility] VIA BED, RECEIVED BEDSIDE REPORT FROM OPERATIONS AND MAINTENANCE MANAGER STACIE. PT A/O X4, ON ROOM AIR, SATING 96%. V/S STABLE. WILL CONTINUE PLAN OF CARE.
--- NOTE | 2025-10-07 17:30 | NUR ---
RN NOTE 1730 BLOOD SUGAR 401, 10 UNITS INSULIN GIVEN PER SLIDING SCALE. THANG STEWART NOTIFIED, NNO.
--- NOTE | 2025-10-07 18:55 | NUR ---
RN CLOSING NOTES PT IN BED, AWAKE, A/O X4, ON ROOM AIR, TOLERATIGN WELL, SATING 97%, TOLERATING WELL. TELE READS SR, HR= 80s. PT REPORTS GENERAL PAIN 3/10 WILL MEDICATE PER ORDER. SKIN IS WARM AND INTACT. SHE HAS IV ACCESS ON THE BRIAN ML, FLUSHING WELL, SL. FC IN PLACE WITH CLEAR YELLOW URINE, WILL DC PER MD ORDER, KS BED IN LOW AND LOCKED POSITION, SIDE RAILS UP X3, CALL LIGHT WITHIN REACH, OTHER SAFETY MEASURES WERE IMPLEMENTED, Addendum: 10/07/25 at 1856 by YAHAIRA RODRÍGUEZ RN ERROR
--- NOTE | 2025-10-07 18:56 | NUR ---
RN CLOSING NOTES PT IN BED, AWAKE, A/O X4, ON ROOM AIR, TOLERATING WELL, SATING 96%, NO S/S OF SOB NOTED AT THIS TIME. ON TELE MONITOR CURRENTLY READING SR, HR 87 BPM. IV ACCESS ON BRIAN ML, PATENT AND INTACT, SL. PT AMBULATORY WITH ASSIST TO BATHROOM. SAFETY MEASURES IMPLEMENTED, BED IN LOWEST LOCKED POSITION, BED ALARM ON, SIDE RAILS UP X2, CALL LIGHT WITHIN REACH. ALL MEDS GIVEN ORDERED, ALL NEEDS ATTENDED TOO. WILL ENDORSE TO ONCOMING SHIFT FOR USHA.
[2025-10-07] MEDS ORDERED: CLONIDINE HCL 0.1 MG TABLET PO PRN (22:00)
[2025-10-08] VITALS (10 sets, daily range): BP systolic 105–151; BP diastolic 64–89; TEMP 97.7–98.4; O2SAT 92–100
[2025-10-08 06:07] LABS: *SPE A/G RATIO 0.6 (0.7-1.7); *SPE ALBUMIN 2.0 g/dL (2.9-4.4); *SPE ALPHA-1-GLOBULIN 0.4 g/dL (0.0-0.4); *SPE ALPHA-2-GLOBULIN 1.0 g/dL (0.4-1.0); *SPE BETA GLOBULIN 0.9 g/dL (0.7-1.3); *SPE GLOBULIN, TOTAL 3.1 g/dL (2.2-3.9); *SPE M-SPIKE Not Observed g/dL (Not Observed); *SPE PROTEIN TOTAL 5.1 g/dL (6.0-8.5); *SPEGAMMA GLOBULIN 0.8 g/dL (0.4-1.8)
[2025-10-08] MEDS: BISACODYL (5 MG) 5 MG TABLET.DR PO PRN (06:13)
--- NOTE | 2025-10-08 06:39 | NUR ---
RN NOTE PATIENT RESTING IN BED, AAOX4, ABLE TO MAKE NEEDS KNOWN, BP SLIGHTLY ELEVATED IN THE BEGINNING OF THE SHIFT BUT BP WENT DOWN @MIDNIGHT. ON 2L PRN WHEN RESTING. BRP. AMBULATES INDEPENDENTLY. COMPLAINTS OF PAIN GIVEN PRN ULTRAM. PATIENT COMPLAINTS OF NO BM FOR 3 DAYS.BOWEL REGIMEN CONTINUED. BLOOD SUGAR MONITORED AND COVERED PER SLIDING SCALE PROTOCOL. ALL DUE MEDS GIVEN, MORNING CARE RENDERED. SAFETY MEASURES IMPLEMENTED, BED IN LOWEST AND LOCKED POSITION, REFUSED BED ALARM EDUCATION PROVIDED. SIDE RAILS UPX2. PLAN OF CARE ONGOING. WILL ENDORSE TO ONCOMING NURSE FOR USHA.
--- NOTE | 2025-10-08 07:20 | NUR ---
RN OPENING NOTE RECEIVED PATIENT AWAKE AND RESTING IN BED, AAOX4, ABLE TO MAKE NEEDS KNOWN. PATIENT HAS IV ACCESS ON BRIAN MIDLINE. PATIENT EXTERNAL CARDIAC MONITORING WITH READING OF 85 BPM. ON 2L PRN WHEN RESTING. BUT PATIENT CURRENTLY ON ROOM AIR WITH OXYGEN SATURATION OF 98%. BRP. AMBULATES INDEPENDENTLY. PATIENT COMPLAINTS OF NO BM FOR 3 DAYS.BOWEL REGIMEN CONTINUED. ALL SAFETY MEASURES IMPLEMENTED, BED IN LOWEST AND LOCKED POSITION, REFUSED BED ALARM EDUCATION PROVIDED. SIDE RAILS UPX2. PLAN OF CARE ONGOING.
[2025-10-08 07:44] LABS: PLATELET COUNT (AUTO) 389 K/uL (150-450); RED BLOOD CELL COUNT(AUTO) 3.74 MIL/uL (4.0-5.2); RED CELL DISTRIBUTION WIDTH 13.2 % (11.5-15.0); WHITE BLOOD COUNT (AUTO) 12.8 K/uL (4.3-11.0)
[2025-10-08 08:53] LABS: CALCIUM, SERUM 9.5 mg/dL (8.5-10.1); CREATININE 1.0 mg/dL (0.6-1.3); SODIUM SERUM 137.0 mmol/L (136-145); UREA NITROGEN, BLOOD 27.0 mg/dL (7-18)
[2025-10-08] MEDS: METOPROLOL TARTRATE 50 MG TABLET PO SCH (12:30)
--- NOTE | 2025-10-08 12:35 | NUR ---
RN NOTE RETURN METOPROLOL 25 MG TO [facility]. 3 METOPROLOL 25MG TABLETS WERE IN THE 50 MG METOPROLOL SLOT. I MISTAKENLY PULLED OUT 25 MG METOPROLOL AND JUST RETURNED IT TO RECEIVE THE CORRECT DOSE OF METOPROLOL WHICH IS 50 MG.
[2025-10-08] MEDS ORDERED: IOHEXOL-350 100 ML VIAL IV ONE (15:59)
[2025-10-08] MEDS ORDERED: IV NS 0.9% 250 ML IV ONE (15:59)
[2025-10-08] MEDS: METOPROLOL TARTRATE INJ 5 MG/5 ML AMPUL IVP PRN (16:10)
[2025-10-08] MEDS ORDERED: METOPROLOL TARTRATE INJ 5 MG/5 ML AMPUL ONE (16:16)
[2025-10-08] MEDS ORDERED: NITROGLYCERIN 0.4 MG/TAB BOTTLE ONE (16:16)
[2025-10-08] MEDS: NITROGLYCERIN 0.4 MG/TAB BOTTLE SL ONE (16:37)
--- NOTE | 2025-10-08 19:15 | NUR ---
RN OPENING NOTE RECEIVED PATIENT AWAKE AND RESTING IN BED, A/OX4, ABLE TO MAKE NEEDS KNOWN. PATIENT HAS IV ACCESS ON BRIAN MIDLINE, PATENT INTACT. PATIENT ON EXTERNAL CARDIAC MONITORING WITH READING OF 88 BPM. ON 2L PRN WHEN RESTING, NEEDED. BUT PATIENT CURRENTLY ON ROOM AIR WITH OXYGEN SATURATION OF 98%. BRP. AMBULATES INDEPENDENTLY. ALL FALL/SAFETY MEASURES IN PLACE PER UNIT PROTOCOL, BED IN LOWEST AND LOCKED POSITION, CALL LIGHT AND TRAY WITHIN EASY REACH, SIDE RAILS UPX2. PLAN OF CARE ONGOING.
--- NOTE | 2025-10-08 19:28 | NUR ---
RN CLOSING NOTE PATIENT AWAKE AND RESTING ON CHAIR NEAR BEDSIDE. A/OX4, ABLE TO MAKE NEEDS KNOWN. PATIENT HAS IV ACCESS ON BRIAN MIDLINE, PATENT INTACT. PATIENT ON EXTERNAL CARDIAC MONITORING WITH READING OF 88 BPM. ON 2L PRN WHEN RESTING, NEEDED. BUT PATIENT CURRENTLY ON ROOM AIR WITH OXYGEN SATURATION OF 96%. BRP. AMBULATES INDEPENDENTLY. PATIENT HAD 7 VOIDS AND 0 BOWEL MOVEMENTS. ALL DUE MEDS GIVEN. ALL NEEDS ATTENDED AND ANTICIPATED. ALL FALL/SAFETY MEASURES IN PLACE PER UNIT PROTOCOL, BED IN LOWEST AND LOCKED POSITION, CALL LIGHT AND TRAY WITHIN EASY REACH, SIDE RAILS UPX2. ENDORSE TO SECOND OPERATOR NURSE FOR CONTINUITY OF CARE.
--- NOTE | 2025-10-08 22:47 | NUR ---
RN NOTE, THE PATIENT DOES NOT WANT TO DO BLADDER SCANNER AT NIGHT AND SHE WANTS TO DO IT IN THE MORNING.
--- NOTE | 2025-10-08 23:49 | NUR ---
RT NOTE: PT REFUSE SCHEDULED HHN AT THIS TIME. PT DENIES ANY PAIN OR SOB. NO SIGNS OF RESPIRATORY DISTRESS. PT REMAIN STABLE ON R/A.
[2025-10-09] VITALS (8 sets, daily range): BP systolic 107–149; BP diastolic 55–76; TEMP 97.9–98.1; O2SAT 93–100
--- NOTE | 2025-10-09 | NUR ---
RN NOTE, PATIENT REFUSED TO RECEIVE THE BP MEDICATION (PROPRANOLOL 50 MG) @ MIDNIGHT (00:00).
--- NOTE | 2025-10-09 01:41 | NUR ---
RN NOTE, RECEIVED CALL FROM LAB THAT PATIENT BLOOD CULTURE IS POSITIVE WITH GRAM NEGATIVE RODS, INFORMED THE LDR NURSE (OTTO SKAGGS).CHARGE NURSE PEDRO LUIS BOWSER.
[2025-10-09 06:51] LABS: PLATELET COUNT (AUTO) 458 K/uL (150-450); RED BLOOD CELL COUNT(AUTO) 4.09 MIL/uL (4.0-5.2); RED CELL DISTRIBUTION WIDTH 13.6 % (11.5-15.0); WHITE BLOOD COUNT (AUTO) 11.0 K/uL (4.3-11.0)
--- NOTE | 2025-10-09 06:52 | NUR ---
RN CLOSING NOTE LEFT PATIENT AWAKE AND RESTING IN BED, A/OX4, ABLE TO MAKE NEEDS KNOWN. PATIENT HAS IV ACCESS ON BRIAN MIDLINE, PATENT INTACT S/L. PATIENT ON EXTERNAL CARDIAC MONITORING SINUS R DURING TANKMAN WITH READING OF 72 BPM. ON 2L OXYGEN NEEDED, BUT PATIENT CURRENTLY ON ROOM AIR WITH OXYGEN SATURATION OF 98%. BRP. AMBULATES INDEPENDENTLY. ALL DUE MEDS WERE GIVEN AND ALL NEEDS ATTENDED TO, ALL FALL/SAFETY MEASURES IN PLACE PER UNIT PROTOCOL, BED IN LOWEST AND LOCKED POSITION, CALL LIGHT AND TRAY WITHIN EASY REACH, SIDE RAILS UPX2. WILL ENDORSE TO THE MORNING SHIFT NURSE TO CONTINUE PLAN OF CARE.
[2025-10-09 06:53] LABS: CALCIUM, SERUM 9.9 mg/dL (8.5-10.1); CREATININE 1.1 mg/dL (0.6-1.3); SODIUM SERUM 134.0 mmol/L (136-145); UREA NITROGEN, BLOOD 27.0 mg/dL (7-18)
[2025-10-09] MEDS: SODIUM ZIRCONIUM CYCLOSILICATE 10 GM POWD.PACK PO ONE ×2 (08:53→14:12)
[2025-10-09] MEDS ORDERED: ISOP1TOW MC (11:20)
[2025-10-09] MEDS ORDERED: [UNRECOGNIZED DRUG - CODE] SUBCUT (11:20)
[2025-10-09] MEDS ORDERED: LEVO500T90 PO (11:20)
[2025-10-09] MEDS ORDERED: INSU500I SQ (11:20)
[2025-10-09] MEDS ORDERED: INSU100I30 SQ (11:20)
[2025-10-09] MEDS: BISACODYL SUPP (10 MG) 10 MG/SUPP.RECT SUPP.RECT RC ONE (12:38)
[2025-10-09 13:12] LABS: CALCIUM, SERUM 9.6 mg/dL (8.5-10.1); CREATININE 1.1 mg/dL (0.6-1.3); SODIUM SERUM 130.0 mmol/L (136-145); UREA NITROGEN, BLOOD 33.0 mg/dL (7-18)
[2025-10-09] MEDS: IV NS 0.9% 1,000 ML IV SCH (14:00)
--- NOTE | 2025-10-09 14:00 | NUR ---
RN NOTES: PT REFUSED LOVENOX AT 1400.
--- NOTE | 2025-10-09 15:20 | NUR ---
RT NOTE: RECEIVED PT ON R/A, WAKE AND ALERT. NO SOB/RDS. PT REFUSED BTX
[2025-10-09 18:14] LABS: CALCIUM, SERUM 9.8 mg/dL (8.5-10.1); CREATININE 1.1 mg/dL (0.6-1.3); SODIUM SERUM 132.0 mmol/L (136-145); UREA NITROGEN, BLOOD 31.0 mg/dL (7-18)
--- NOTE | 2025-10-09 19:06 | NUR ---
WILBUR DESIR ORDERED TO RECHECK PATIENT'S BLOOD SUGAR, 381 MG/DL. GIVE 6 UNITS REGULAR INSULIN ONCE AND CHANGE DIET TO LOW CARB. NOTED AND CARRIED OUT.
--- NOTE | 2025-10-09 19:18 | NUR ---
MS RN OPENING NOTE RECEIVED PATIENT SITTING ON BEDSIDE CHAIR, COMFORTABLY ON HER CP. A/O X4, VERBALIZES NEEDS. WITH IV ACCESS ON BRIAN MIDLINE #18G, FLUSHING WELL, NO INFILTRATION NOTED AT THIS TIME. STABLE ON ROOM AIR WITH SPO2 98%. AMBULATES INDEPENDENTLY FOR BRPS, TOLERATING WELL. ABLE TO TOLERATED LOW CARB DIET, FLUIDS TAKEN WITHOUT DIFFICULTY. NO S/S OF HYPO/HYPERGLYCEMIA OBSERVED. ALL SAFETY MEASURES IMPLEMENTED PER UNIT PROTOCOL. CONTINUED ONGOING PLAN OF CARE.
[2025-10-09] MEDS: INSULIN REGULAR, HUMAN 100 UNIT/ML 10 ML VIAL SQ ONE (19:30)
--- NOTE | 2025-10-09 19:43 | NUR ---
MS RN CLOSING NOTE PATIENT RESTING IN BED, ABLE TO MAKE NEEDS KNOWN. SATURATING WELL ON ROOM AIR. DENIES PAIN. AFEBRILE. LEFT UPPER ARM MIDLINE INTACT, PATENT AND FLUSHING. HAD SMALL BM X2. URINE OUTPUT OF 1800 ML. ADVISED TO MINIMIZE FREE WATER INTAKE. ALL DUE MEDS GIVEN AND NEEDS ATTENDED. SAFETY MEASURES MAINTAINED. ENDORSE TO NIGHT RN FOR USHA.
[2025-10-10 04:00] VITALS: BP 123/81; TEMP 97.9; O2SAT 97
[2025-10-10] MEDS: *INSULIN REGULAR(HUMULIN R)HUM 100 UNIT/ML VIAL SQ PRN (06:39)
--- NOTE | 2025-10-10 06:44 | NUR ---
RN NOTE FSBS for 0730: 194 mg/dl, 3 units regular insulin coverage.
--- NOTE | 2025-10-10 07:35 | NUR ---
RN OPENING NOTE RECEIVED PATIENT AWAKE IN BED, A/O X4, ON ROOM AIR, TOLERATING WELL WITH NO SIGNS OF ACUTE RESPIRATORY DISTRESS. SHE HAS IV ACCESS ON THE LEFT UPPER ARM GAUGE #18, MIDLINE SALINE LOCK. SKIN IS WARM AND INTACT. BED IN LOW AND LOCKED POSITION, SIDE RAILS UP X3, CALL LIGHT WITHIN REACH, AND OTHER SAFETY MEASURES WERE IMPLEMENTED.
--- NOTE | 2025-10-10 07:42 | NUR ---
RN CLOSING NOTES PT. AWAKE IN BED A/O X 4 ABLE TO MAKE NEEDS KNOWN. ON ROOM AIR TOLERATING WELL. NO RESPIRATORY DISTRESS NOTED. IV ACCESS AT LEFT UPPER ARM MIDLINE PATENT INTACT SL. SAFETY MEASURES IMPLEMENTED PER UNIT PROTOCOL. ALL DUE MEDS GIVEN, ALL NEEDS ATTENDED TOO. ENDORSED TO ONCOMING RN FOR USHA.
[2025-10-10 07:54] VITALS: O2SAT 99
[2025-10-10 08:00] VITALS: BP 97/59; TEMP 97.7; O2SAT 98
[2025-10-10 08:23] LABS: PLATELET COUNT (AUTO) 492 K/uL (150-450); RED BLOOD CELL COUNT(AUTO) 4.10 MIL/uL (4.0-5.2); RED CELL DISTRIBUTION WIDTH 13.8 % (11.5-15.0); WHITE BLOOD COUNT (AUTO) 13.5 K/uL (4.3-11.0)
[2025-10-10 09:07] LABS: ASPARTATE AMINOTRANSFERASE 18.0 U/L (15-37); CALCIUM, SERUM 9.6 mg/dL (8.5-10.1); CREATININE 0.9 mg/dL (0.6-1.3); PHOSPHORUS 4.5 mg/dL (2.5-4.9); SODIUM SERUM 136.0 mmol/L (136-145); TOTAL PROTEIN, SERUM 7.4 g/dL (6.4-8.2); UREA NITROGEN, BLOOD 35.0 mg/dL (7-18)
[2025-10-10] MEDS: INSULIN REGULAR, HUMAN 100 UNIT/ML 3 ML VIAL SQ PRN (11:21)
[2025-10-10 11:28] VITALS: BP 97/59
--- NOTE | 2025-10-10 12:14 | NUR ---
LAUNDRY ROUTE DRIVER NOTE RECEIVED DISCHARGE ORDERS FROM [facility]. ALL DUE MEDS WERE GIVEN. ALL NEEDS WERE ATTENDED TO. PATIENT IS A/O X4, SHE SIGNED THE DISCHARGE PAPERS AND THE BELONGINGS LIST. KEPT IN CHART. VITAL SIGNS WERE CHECKED AND ARE WNL. DISCHARGE INSTRUCTIONS WERE PROVIDED AND PATIENT VERBALIZED UNDERSTANDING. PICKED UP BY @ 1210H. DISCHARGED IN STABLE CONDITION @ 1213H.
[2025-10-10] MEDS ORDERED: TAMS-12 PO (12:31)
[2025-10-10] MEDS ORDERED: METO50TA7 PO (12:31)
[2025-10-10 13:00] LABS: EOSINOPHILS % (MANUAL) 1 % (0-4); LYMPHOCYTES % (MANUAL) 14 % (16-48); MONOCYTES % (MANUAL) 2 % (0-11.0); NEUTROPHILS % (MANUAL) 83 (42-76); PLATELET ESTIMATE INCREASED
== END 2025-10-10 12:25 | disposition home or self-care (01) | DRG 871 ==
LOC: ER 17:21 → TELE1 19:58 → ICU 10-02 11:56 → TELE-TD 10-07 11:37 → TELE1 10-08 09:33 → MEDSG1 10-09 09:26
PROVIDERS: ADMIT Nurse Practitioner Family
DX: A41.50 Gram-negative sepsis, unspecified (principal); R65.21 Severe sepsis with septic shock; J96.01 Acute respiratory failure with hypoxia; I50.33 Acute on chronic diastolic (congestive) heart failure; I21.A1 Myocardial infarction type 2; E44.0 Moderate protein-calorie malnutrition; E87.20 Acidosis, unspecified; I11.0 Hypertensive heart disease with heart failure; N10 Acute pyelonephritis; E86.0 Dehydration; E11.43 Type 2 diabetes mellitus with diabetic autonomic (poly)neuropathy; N13.6 Pyonephrosis; N17.9 Acute kidney failure, unspecified; B96.1 Klebsiella pneumoniae [K. pneumoniae] as the cause of diseases classified elsewhere; E87.1 Hypo-osmolality and hyponatremia; K80.20 Calculus of gallbladder without cholecystitis without obstruction; Z20.822 Contact with and (suspected) exposure to COVID-19; K31.84 Gastroparesis; Z79.84 Long term (current) use of oral hypoglycemic drugs; E88.09 Other disorders of plasma-protein metabolism, not elsewhere classified; E11.65 Type 2 diabetes mellitus with hyperglycemia; E86.1 Hypovolemia; Z68.22 Body mass index [BMI] 22.0-22.9, adult; N31.9 Neuromuscular dysfunction of bladder, unspecified; E83.89 Other disorders of mineral metabolism; M54.9 Dorsalgia, unspecified; R53.1 Weakness; E87.6 Hypokalemia; E87.5 Hyperkalemia; N32.0 Bladder-neck obstruction
CPT/HCPCS: 36415; 36600; 71045-TC; 75574; 80048-TC; 80053-TC; 80061-TC; 80076-TC; 81001; 82550-TC; 82570-TC; 82728-TC; 82803-TC; 82962-TC; 83540-TC; 83605-TC; 83735-TC; 83970; 84100-TC; 84155; 84165; 84300-TC; 84436-TC; 84439-TC; 84443-TC; 84480; 84484-TC; 85025-TC; 85027-TC; 85378-TC; 85652-TC; 85730-TC; 87040-TC; 87081-TC; 87086-TC; 87186-TC; 93307-TC; 93970-TC; 94760-TC; 94799-TC; 97112-TC; 97116-TC; 97530-TC; A4223; G0378; J0692; J0696; J1650; J1815; J1885; J1938; J2060; J2185; J2270; J2405; J2470; J2543; J2765; J2916; J2919; J3475; J3490; J7030; J7040; J7050; J7060; J7120; Q9967